=== PATIENT | female | born 1970 | race Caucasian/White ===

== ENCOUNTER → 2018-07-16 08:40 | Outpatient (CLI) | payer BC, OTHER, SELFPAY ==
--- NOTE | 2018-07-16 09:15 | MRI_ITS ---
STUDY: MRI CERVICAL SPINE WITHOUT CONTRAST REASON FOR EXAM: Female, 47 years old. Right arm and shoulder pain. TECHNIQUE: Standardized fat and water weighted pulse sequences were obtained in the sagittal and axial planes. COMPARISON: None FINDINGS: Normal foramen magnum and brainstem-cervical cord junction. Normal craniovertebral junction. Normal anterior atlantoaxial articulation. Normal odontoid process. Normal cervical lordosis. Normal vertebral bodies and posterior osseous elements. C2-3: Normal endplates. Normal disc height, signal and morphology. Normal central canal and intervertebral neural foramina. C3-4: There is demonstrated broad-based disc bulge eccentric to the right resulting in mild right foraminal narrowing. There is effacement of the thecal sac without cord compression. C4-5: Normal endplates. Normal disc height, signal and morphology. Normal central canal and intervertebral neural foramina. C5-6: There is demonstrated right paracentral and foraminal disc bulge resulting in moderate right foraminal narrowing. There is associated right side thecal sac effacement without significant spinal canal narrowing. C6-7: Normal endplates. Normal disc height, signal and morphology. Normal central canal and intervertebral neural foramina. C7-T1: Normal endplates. Normal disc height, signal and morphology. Normal central canal and intervertebral neural foramina. Normal cervical cord. Normal visualized soft tissue structures. MRI/Spine Cervical (Routine) IMPRESSION: 1. Right paracentral C5-6 paracentral disc bulge resulting in moderate right foraminal narrowing, clinically correlate for right C5 nerve root radiculopathy. 2. Mild right foraminal narrowing at C3-4. Electronically Signed: Dread Fraser DO at 11:44 EST , Service support ,
== END ==
PROVIDERS: Family Provider Family Medicine; PCP Family Medicine; Referring Provider Family Medicine; Visit Provider Family Medicine
DX: M25.511 Pain in right shoulder (principal); R53.1 Weakness; M79.609 Pain in unspecified limb; R20.2 Paresthesia of skin
CPT/HCPCS: 72141

== ENCOUNTER → 2019-02-13 | Outpatient (CLI) | payer BC, OTHER, SELFPAY ==
[2019-02-13 10:18] LABS: Absolute Lymphocyte Count 1.56 X10^3/uL (0.83-4.51); Absolute Neutrophil Count 2.3 X10^3/uL (2.0-7.7); Basophil# 0.04 X10^3/uL; Basophil% 0.9 % (0-1); Eosinophil# 0.16 X10^3/uL; Eosinophils% 3.6 % (0-5); Hematocrit 37.7 % (37-47); Lymphocyte # 1.56 X10^3/ul (4.0); Lymphocyte % 35.1 % (19-41); Mean Corp Hgb Conc 31.8 g/dL (32-36); Mean Corpuscular Hgb 29.3 pg (27.0-32.0); Monocyte# 0.43 X10^3/uL; Monocyte% 9.7 % (0-10); NRBC Flagged by Analyzer 0 % (0-5); Neutrophil # 2.25 X10^3/uL (2.7-7.7); Neutrophil % 50.5 % (47-70); Platelet Count 246 K/mm3 (150-450); RBC Distribution Width CV 12.6 % (11.6-14.6); RBC Distribution Width SD 42.4 fl (35.1-43.9); White Blood Count 4.5 K/mm3 (4.4-11.0)
[2019-02-13 10:51] LABS: Vitamin D,25 Hydroxy 30.9 ng/mL (29.95-100.01)
[2019-02-13 10:59] LABS: ALB/GLOB Ratio 1.1 RATIO (0.9-2.4); AST(SGOT) 39 U/L (15-37); Alanine Aminotransfer ALT/SGPT 64 U/L (13-56); Albumin, Serum 3.7 g/dL (3.2-5.0); Alkaline Phosphatase 92 U/L (45-117); Anion Gap 5 (5-15); BUN 14 mg/dL (7-18); BUN/Creat Ratio 14.2 RATIO (10-20); Calcium,Total 8.9 mg/dL (8.5-10.1); Chloride 105 mmol/L (98-107); Cholesterol 366 mg/dL (200); Creatinine, Serum 0.99 mg/dL (0.55-1.02); EST Glomerular Filtration Rate 64 mL/min (>60); Est Glom Filt Rate - Afr Amer 77 mL/min (>60); Free T3 2.5 pg/mL (2.18-3.98); Globulin 3.3 g/dL (2.2-4.2); Glucose 84 mg/dL (74-106); High Density Lipoprotein 88 mg/dL; Potassium 4.5 mmol/L (3.5-5.1); Sodium Level 140 mmol/L (136-145); T4 Free Direct 0.78 ng/dL (0.76-1.46); Thyroid Stim Hormone (TSH) 1.45 uIU/mL (0.358-3.74); Triglycerides 112 mg/dL; Very Low Density Lipoprotein 22 mg/dL (5-40)
[2019-02-14 19:13] LABS: Thyroid Peroxidase AB 9 IU/mL (0-34)
[2019-02-15 13:21] LABS: Thyroglobulin Antibody < 1.0 IU/mL (0.0-0.9)
== END | disposition home or self-care (01) ==
PROVIDERS: Family Provider Family Medicine; PCP Family Medicine; Referring Provider Family Medicine; Visit Provider Family Medicine
DX: E03.9 Hypothyroidism, unspecified (principal); M79.10 Myalgia, unspecified site; M25.50 Pain in unspecified joint; E78.5 Hyperlipidemia, unspecified; R53.83 Other fatigue; M79.7 Fibromyalgia; E55.9 Vitamin D deficiency, unspecified
CPT/HCPCS: 36415; 80053; 80061; 82306; 84439; 84443; 84481; 85025; 86376; 86800

== ENCOUNTER 2019-02-16 07:42 | Outpatient (RCR) | payer BC, OTHER, SELFPAY ==
--- NOTE | 2019-02-21 08:38 | HP.FCE ---
HP OT Functional Capacity Eval - Task Lift Floor (Occasional 1-33% of Day): 40# Floor (Frequent 34-66% of Day): 20# Floor (Constant 67-100% of Day): 8# Floor PDL: Light-Medium Knee (Occasional 1-33% of Day): 40# Knee (Frequent 34-66% of Day): 20# Knee (Constant 67-100% of Day): 8# Knee PDL: Light-Medium Waist (Occasional 1-33% of Day): 40# Waist (Frequent 34-66% of Day): 20# Waist (Constant 67-100% of Day): 8# Waist PDL: Light-Medium Shoulder (Occasional 1-33% of Day): 25# Shoulder (Frequent 34-66% of Day): 12# Shoulder (Constant 67-100% of Day): 5# Shoulder PDL: Light Overhead (Occasional 1-33% of Day): 15# Overhead (Frequent 34-66% of Day): 8# Overhead (Constant 67-100% of Day): NA Overhead PDL: Light Comments: Therapist needed to ed. pt on proper lift mechanics with this task. pt followed instructions with good ability. - Work Activity/Posture Bending: Frequent Ability (34-66% of day) Squatting: Occasional Ability (1-33% of day) Comments: with external support Kneeling: Occasional Ability (1-33% of day) Comments: with external support Reaching out: Occasional Ability (1-33% of day) Reaching up: Occasional Ability (1-33% of day) Sitting: Frequent Ability (34-66% of day) Walking: Frequent Ability (34-66% of day) Standing: Occasional Ability (1-33% of day) - Reference Duration Sedentary Sedentary Light Light Light Medium Medium Medium Heavy Very Heavy Heavy Occasional (0-33% of day) Frequent (34-66% of day) Constant (67-100% of day) 10 # Negligible Negligible 15 # 8 # Negligible 20 # 10# Negli. 35 # 18 # 7 # 50 # 25 # 10 # 75 # 100 # >100 # 38 # 50 # >50 # 15 # 20 # >20 # - Patient Information Height: 1.63 m Weight:: 70.307 kg Hand Dominance: Right - Medical History Medical History Including Restrictions: Pt states she began having general pain in and dx of Fibromyalgia. PT states she did physical therapy, stretches, and yoga to mtg her symptoms. Pt states she began having pinch nerve, bulging disc C3-C4 dx in July 2018. Pt states she has been using pain mtg to help her symptoms. She has had two injections in her neck and one in mid back. Pt states injections is helping with her symptoms. pt states her medication list is lisinopril 20 mg , nizatidine 150 mg, Amitriptyline 50mg, calcium carbonate with Vit.D , cetirizine, chlordiazepoxide clidiniu, diazepam, diclofenac. duloxetine, lorazepam, tramadol 50mg. Pt states she walks 1/8 of a mile 2x a day walking her dogs. pt states she does exercise 1-2x week but not elaborate on what exercises she does when she exercises/stretches. - Diagnoses Diagnoses: Fibromyalgia dx . Bulging disc C3-C4 July 2018. HTN 1997 controlled by medication. IBS - Symptoms Symptoms: Pt reports symptoms vary from fatigue and wide spread body pain. - Pain Pain: PT states she did take her pain medication this AM. PT took tramadol and states she is due for epidural injection next week. Pt reports pain sitting 5/10. Mary pain questionnaire pt score of 30 indicates poor psycholdynamics. 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 Pt states her last day of employment was 2017. Pt reports her job included repetitive fast past work, standing for 4 hours and sitting for four hours. Pt states her lift requirement was 25#. Pt was employed but using her FMLA so she wasn?t working her full 40 hours a week since 2015. 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 Pt states this job required sitting, standing, or working at a [employer]. - Behavioral Behavioral: Pt was cooperative during the assessment. - ADLS ADLS: Pt states she lives in a ranch home with basement. pt states she has three entry steps to get in her home. Pt has no difficulty getting in or out of her home. Pt lives with spouse and son who is 22 years old. Pt states she has a tub shower with no adaptive equipment. Pt states she can bath IND. Pt can dress IND. Pt states laundry is in basement with 12 steps to basement and no railing. Pt states she has no trouble going to the basement. Pt states she is ind. with laundry. Pt states she does all the meal prep and cooking, Pt states she is IND with all the cleaning. Pt states her does the yard work. Pt states she drives IND. pt states she does the grocery shopping IND. - Physical Examination Physical Examination: Pt demonstrates with rounded posture, rolled shoulder neck forward posture. ROM: Pt demo ROM WNL. Strength: Pt grossly throughout UB 5/5 LB 5/5 Right Railway Traction Line Worker Strength Average: 48.33 Right Railway Traction Line Worker Strength Percentile: 7% Left Railway Traction Line Worker Strength Average: 51.66 Left Railway Traction Line Worker Strength Percentile: 17% Right Lateral Pinch Average: 10.00 Right Lateral Pinch Percentile: 25% Left Lateral Pinch Average: 10.00 Left Lateral Pinch Percentile: 25% Right Tripod Pinch Average: 12.00 Right Tripod Pinch Percentile: 50% Left Tripod Pinch Average: 14.00 Left Tripod Pinch Percentile: 50% Sensation: denies Fine Motor: 9 hole peg test right 22 sec = 25%. left 23 sec = 25%. pt demo fair FMS Balance: No loss of balance was noted during assessment - Non Material Handling Activities Bending: PT demo the ability to bend forward three times, ten times and ten ten times rapidly.pt can bend forward on a frequent ability. Squatting: Pt demo the ability to squat three times, ten times and ten times again (pt did not demo increase speed of squatting from intial 10 so completing 10 times rapidly was not completed)- pt did use external support. pt can squat on a occasional ability with exteranl support. Kneeling: pt demo the ability to kneel with external support three times, ten times and ten times again( speed did not increase with kneeling when requested pt to perform 10 times rapidly) - pt reported buring pain in her legs pointing to her quads. Pt reports LE pain 6/10 pt can knee on a occasional ability with use of external support. Reaching out/up: pt demo the ability to reach out/up three times, ten times, and ten times again- pt reported she could not complet the tasks faster due to pain and fear of increaseing pain. pts reported pain was 6/10. pt can reach up/out on a occassional ability. Walking: pt ambulated 15 min 26 sec. wtih a quick reciprical gait pattern. As pt indicated she ambulates 1/8 a mile 2 x a day while walking her dogs. Standing: pt stood for 6:39. therapist noted pt did initiate leaning body on tabletop after 4 min. pt can stand on occasional ability with given the opportunity to shift her body weight. Sitting: pt demo the ability to sit for 40 min with no expressed or apparent discomfort- pt can sit on a frequent ability. Climbing Stairs: pt ascended/descended 10 steps with reciprocal step pattern and use of rail with descending steps. - Dynamic Occasional Lifting Capacity Floor Lift: Pt demo the ability to lift 40# maximally from floor level and 20# comfortably. Therapist needed to ed. Pt on good lifting mechanics as Pt initial lift was bending at waist and lifting weight vs squatting with good lift mechanics. Knee Lift: Pt demo the ability to lift 40# maximally from knee level and 20# comfortably. Therapist needed to ed. Pt on good lifting mechanics as Pt initial lift was bending at waist and lifting weight vs squatting with good lift mechanics. Waist Lift: Pt demo the ability to lift 40# maximally from waistlevel and 20# comfortably. Shoulder Lift: Pt demo the ability to lift 25 # maximally from waistlevel and 10# comfortably. Overhead Lift: Pt demo the ability to lift 15# maximally from waistlevel and 15# comfortably. Carrying: Pt demo the ability to carry 35# for 30 feet with good ability. Comments: pt states pain in her mid to lower back, right shoulder reports 7/10
== END 2019-02-16 19:00 | disposition home or self-care (01) ==
LOC: OT 07:42
PROVIDERS: Family Provider Family Medicine; PCP Family Medicine; Referring Provider Anesthesiology Pain Medicine; Visit Provider Anesthesiology Pain Medicine
DX: M54.2 Cervicalgia (principal); M79.7 Fibromyalgia
CPT/HCPCS: 97750

== ENCOUNTER → 2019-04-20 08:23 | Outpatient (CLI) | payer BC, OTHER, SELFPAY ==
[2019-04-20 11:00] LABS: ALB/GLOB Ratio 1.2 RATIO (0.9-2.4); AST(SGOT) 35 U/L (15-37); Alanine Aminotransfer ALT/SGPT 44 U/L (13-56); Albumin, Serum 3.9 g/dL (3.2-5.0); Alkaline Phosphatase 65 U/L (45-117); Anion Gap 7 (5-15); BUN 12 mg/dL (7-18); BUN/Creat Ratio 11.3 RATIO (10-20); Calcium,Total 9.2 mg/dL (8.5-10.1); Chloride 108 mmol/L (98-107); Cholesterol 261 mg/dL (200); Creatinine, Serum 1.06 mg/dL (0.55-1.02); EST Glomerular Filtration Rate 59 mL/min (>60); Est Glom Filt Rate - Afr Amer 71 mL/min (>60); Globulin 3.3 g/dL (2.2-4.2); Glucose 87 mg/dL (74-106); High Density Lipoprotein 94 mg/dL; Potassium 4.2 mmol/L (3.5-5.1); Protein, Total 7.2 g/dL (6.4-8.2); Sodium Level 141 mmol/L (136-145); Triglycerides 184 mg/dL; Very Low Density Lipoprotein 37 mg/dL (5-40)
== END ==
PROVIDERS: Family Provider Family Medicine; PCP Family Medicine; Referring Provider Family Medicine; Visit Provider Family Medicine
DX: I10 Essential (primary) hypertension (principal); E78.5 Hyperlipidemia, unspecified
CPT/HCPCS: 36415; 80053; 80061

== ENCOUNTER → 2019-07-04 | Outpatient (CLI) | payer BC, OTHER, SELFPAY ==
--- NOTE | 2019-07-04 09:00 | RAD_ITS ---
STUDY: X-RAY - CERVICAL SPINE REASON FOR EXAM: Female, 48 years old. PAIN TECHNIQUE: 4 view(s) of the cervical spine were obtained. COMPARISON: 12/25/2016 FINDINGS: Normal anterior atlantoaxial articulation. Normal odontoid process. Normal cervical lordosis. Normal vertebral bodies and endplates. Focal disc space narrowing and osteophyte formation at C5/C6 consistent consistent with degenerative disc disease. 2 mm retrolisthesis of C5 on C6 which is unchanged on the neutral, flexion, and extension views. Normal visualized intervertebral neuroforamina. The soft tissue structures are unremarkable. RAD/Cerv Spine 4 or 5 Views IMPRESSION: Focal degenerative disc disease at C5/C6 with 2 mm retrolisthesis of C5 on C6 which is unchanged on the neutral, flexion, and extension views. These findings are new when compared with prior study from 12/25/2016. Electronically Signed: Avtar Cho MD at 12:44 EST Tel , Service support ,
== END | disposition home or self-care (01) ==
LOC: HPRAD 09:00
PROVIDERS: PCP Family Medicine; Referring Provider Orthopaedic Surgery; Visit Provider Orthopaedic Surgery
DX: M54.2 Cervicalgia (principal)
CPT/HCPCS: 72050

== ENCOUNTER → 2019-07-15 | Outpatient (CLI) | payer BC, OTHER, SELFPAY ==
--- NOTE | 2019-07-15 07:59 | MRI_ITS ---
STUDY: MRI CERVICAL SPINE WITHOUT CONTRAST REASON FOR EXAM: Female, 48 years old. Radiculopathy. Neck pain, right arm pain TECHNIQUE: Standardized fat and water weighted pulse sequences were obtained in the sagittal and axial planes. COMPARISON: July 16, 2018 FINDINGS: Normal foramen magnum and brainstem-cervical cord junction. Normal cervical lordosis. C2-3: There is minimal disc space narrowing and endplate spondylosis. There is no significant disc herniation, central canal or foraminal stenosis. C3-4: There is moderate disc space narrowing and endplates spondylosis. Mild disc osteophyte complex with mild central canal stenosis. Uncovertebral and facet arthropathy with moderate right and mild left foraminal stenosis. Findings are stable since prior examination C4-5: There is mild disc space narrowing and endplates spondylosis. Minimal disc osteophyte complex without significant central canal stenosis. Uncovertebral and facet arthropathy with mild right and mild left foraminal stenosis. Findings are stable since prior examination C5-6: There is increased severe disc space narrowing and endplates spondylosis. Mild disc osteophyte complex with moderate central canal stenosis. There is decreased right paracentral protrusion however. Uncovertebral and facet arthropathy with stable severe right and mild left foraminal stenosis. C6-7: There is minimal disc space narrowing and endplate spondylosis. There is no significant disc herniation, central canal or foraminal stenosis. C7-T1: There is minimal disc space narrowing and endplate spondylosis. There is no significant disc herniation, central canal or foraminal stenosis. Normal cervical cord. MRI/Spine Cervical (Routine) IMPRESSION: C3/C4: Moderate right foraminal stenosis. C5/C6: Severe right foraminal stenosis. Moderate central canal stenosis. Electronically Signed: Kosta Taylor MD at 9:20 EDT Tel , Service support ,
== END | disposition home or self-care (01) ==
LOC: MRI 07:58
PROVIDERS: PCP Family Medicine; Referring Provider Orthopaedic Surgery; Visit Provider Orthopaedic Surgery
DX: M54.12 Radiculopathy, cervical region (principal)
CPT/HCPCS: 72141

== ENCOUNTER → 2020-02-14 | Outpatient (CLI) | payer BC, OTHER, SELFPAY ==
[2020-02-14 12:13] LABS: Absolute Lymphocyte Count 2.15 X10^3/uL (0.83-4.51); Absolute Neutrophil Count 4.4 X10^3/uL (2.0-7.7); Basophil# 0.05 X10^3/uL; Basophil% 0.7 % (0-1); Eosinophil# 0.08 X10^3/uL; Eosinophils% 1.1 % (0-5); Hematocrit 40.4 % (37-47); Hemoglobin 12.7 g/dL (12.0-15.0); Lymphocyte # 2.15 X10^3/ul (4.0); Lymphocyte % 29.4 % (19-41); Mean Corp Hgb Conc 31.4 g/dL (32-36); Mean Corpuscular Hgb 29.2 pg (27.0-32.0); Mean Corpuscular Volume 92.9 fL (81-99); Mean Platelet Vol. 8.8 fl (6.2-12.0); Monocyte# 0.59 X10^3/uL; Monocyte% 8.1 % (0-10); NRBC Flagged by Analyzer 0 % (0-5); Neutrophil # 4.43 X10^3/uL (2.7-7.7); Neutrophil % 60.6 % (47-70); Platelet Count 293 K/mm3 (150-450); RBC Distribution Width CV 12.5 % (11.6-14.6); RBC Distribution Width SD 42.8 fl (35.1-43.9); Red Blood Count 4.35 M/mm3 (4.2-5.4); White Blood Count 7.3 K/mm3 (4.4-11.0)
[2020-02-14 12:40] LABS: Vitamin B12 > 2000 pg/mL (211-911); Vitamin D,25 Hydroxy 87.9 ng/mL
[2020-02-14 12:43] LABS: ALB/GLOB Ratio 1.1 RATIO (0.9-2.4); AST(SGOT) 26 U/L (15-37); Alanine Aminotransfer ALT/SGPT 55 U/L (13-56); Albumin, Serum 3.9 g/dL (3.2-5.0); Alkaline Phosphatase 78 U/L (45-117); Anion Gap 3 (5-15); BUN 20 mg/dL (7-18); BUN/Creat Ratio 17.2 RATIO (10-20); Calcium,Total 9.3 mg/dL (8.5-10.1); Chloride 104 mmol/L (98-107); Cholesterol 275 mg/dL (200); Creatinine, Serum 1.16 mg/dL (0.55-1.02); EST Glomerular Filtration Rate 53 mL/min (>60); Est Glom Filt Rate - Afr Amer 64 mL/min (>60); Globulin 3.4 g/dL (2.2-4.2); Glucose 72 mg/dL (74-106); High Density Lipoprotein 109 mg/dL; Potassium 4.5 mmol/L (3.5-5.1); Protein, Total 7.3 g/dL (6.4-8.2); Sodium Level 138 mmol/L (136-145); Triglycerides 113 mg/dL; Very Low Density Lipoprotein 23 mg/dL (5-40)
== END | disposition home or self-care (01) ==
LOC: BFHLAB 10:40
PROVIDERS: PCP Family Medicine; Visit Provider Family Medicine
DX: E53.8 Deficiency of other specified B group vitamins (principal); E55.9 Vitamin D deficiency, unspecified; E78.5 Hyperlipidemia, unspecified; Z51.81 Encounter for therapeutic drug level monitoring
CPT/HCPCS: 36415; 80053; 80061; 82306; 82607; 85025

== ENCOUNTER → 2020-08-15 07:24 | Outpatient (CLI) | payer OTHER, SELFPAY ==
[2020-08-15 10:38] LABS: ALB/GLOB Ratio 1.2 RATIO (0.9-2.4); AST(SGOT) 37 U/L (15-37); Alanine Aminotransfer ALT/SGPT 83 U/L (13-56); Albumin, Serum 3.9 g/dL (3.2-5.0); Alkaline Phosphatase 88 U/L (45-117); Anion Gap 4 (5-15); BUN 15 mg/dL (7-18); BUN/Creat Ratio 18.9 RATIO (10-20); Calcium,Total 9.2 mg/dL (8.5-10.1); Chloride 108 mmol/L (98-107); Cholesterol 253 mg/dL (200); EST Glomerular Filtration Rate 81 mL/min (>60); Est Glom Filt Rate - Afr Amer 98 mL/min (>60); Globulin 3.2 g/dL (2.2-4.2); Glucose 102 mg/dL (74-106); High Density Lipoprotein 113 mg/dL; Magnesium 2.1 mg/dL (1.6-2.6); Potassium 3.8 mmol/L (3.5-5.1); Protein, Total 7.1 g/dL (6.4-8.2); Sodium Level 140 mmol/L (136-145); Triglycerides 97 mg/dL; Very Low Density Lipoprotein 19 mg/dL (5-40)
== END ==
PROVIDERS: PCP Family Medicine; Referring Provider Family Medicine; Visit Provider Family Medicine
DX: E78.5 Hyperlipidemia, unspecified (principal); E83.42 Hypomagnesemia; E87.6 Hypokalemia; Z51.81 Encounter for therapeutic drug level monitoring
CPT/HCPCS: 36415; 80053; 80061; 83735

== ENCOUNTER → 2021-05-06 07:10 | Outpatient (CLI) | payer OTHER, SELFPAY ==
--- NOTE | 2021-05-06 07:18 | MRI_ITS ---
STUDY: MRI CERVICAL SPINE WITHOUT CONTRAST REASON FOR EXAM: Female, 50 years old. CERVICAL RADICULOPATHY TECHNIQUE: Standardized fat and water weighted pulse sequences were obtained in the sagittal and axial planes. COMPARISON: MRI cervical spine without contrast 07/15/2019. FINDINGS: Normal foramen magnum and brainstem-cervical cord junction. Normal craniovertebral junction. Normal anterior atlantoaxial articulation. Normal odontoid process. Mild straightening of the upper C-spine curvature. Normal vertebral bodies and posterior osseous elements. C2-3: Normal endplates. Normal disc height, signal and morphology. Normal central canal and intervertebral neural foramina. C3-4: Normal endplates. Moderate disc space height narrowing. Small posterior marginal spurs causing minimal ventral extra dural defect. Normal central canal and intervertebral neural foramina. C4-5: Normal endplates. Normal disc height, signal and morphology. Normal central canal and intervertebral neural foramina. C5-6: Normal endplates. Pronounced disc space height narrowing. Minimal degenerative retrolisthesis of C5 on C6 is accounts without small ventral extradural defect. Normal central canal and intervertebral neural foramina. C6-7: Normal endplates. Normal disc height, signal and morphology. Normal central canal and intervertebral neural foramina. C7-T1: Normal endplates. Normal disc height, signal and morphology. Normal central canal and intervertebral neural foramina. T1-T2, T2-T3 and T3-T4: (Sagittal only). Normal endplates. Normal disc height, signal and morphology. No ventral extradural defect. Normal central canal and intervertebral neural foramina. Normal cervical cord. Normal upper thoracic spinal cord. Normal included brainstem and cerebellum. Normal visualized soft tissue structures. MRI/Spine Cervical (Routine) IMPRESSION: 1. No MRI evidence of cervical extruded disc fragment, spinal stenosis or nerve root displacement. 2. Posterior marginal spurs causing minimal ventral extradural defect at C3-C4 disc space level and moderate C3-C4 degenerative disc space height narrowing. No significant change. 3. Pronounced C5-C6 posterior disc space height narrowing and minimal degenerative retrolisthesis of C5 on C6 causing ventral extradural defect but unchanged. Electronically Signed: Ridge Cruz MD at 10:20 EST , Service support ,
== END ==
PROVIDERS: PCP Family Medicine; Referring Provider Anesthesiology Pain Medicine; Visit Provider Anesthesiology Pain Medicine
DX: M54.12 Radiculopathy, cervical region (principal)
CPT/HCPCS: 72141

== ENCOUNTER → 2021-08-28 | Outpatient (CLI) | payer OTHER, SELFPAY ==
--- NOTE | 2021-08-28 07:18 | US_ITS ---
STUDY: ABDOMINAL ULTRASOUND - RIGHT UPPER QUADRANT REASON FOR VISIT: Female, 50 years old ELEVATED LIVER FUNCTION TESTS TECHNIQUE: Ultrasound evaluation of the right upper quadrant was performed with real-time and static cho-scale imaging. TECHNICAL QUALITY: Adequate. COMPARISON: None. FINDINGS: Liver: The liver measures 14 cm. There is normal echogenicity of the liver. The bile ducts are within normal limits. There is hepatic color flow. The direction of portal flow is hepatopetal. There is no demonstrated mass lesion. Gallbladder: Normal distended gallbladder. The gallbladder wall measures 2.3 mm. There is a negative sonographic Garvin''s sign. There is no pericholecystic fluid. There are no gallstones. Common Bile Duct (C.B.D.): The common bile duct measures 2.0 mm. Pancreas: There is no demonstrated pancreatic mass or cyst. Right Kidney: Normal size of the right kidney. There is no demonstrated renal mass or cyst. There is no right hydronephrosis. US/Abdomen Limited IMPRESSION: Normal right upper quadrant ultrasound examination. Electronically Signed: Jeet Nichols MD (Brooks) at 8:05 EDT Reading Location ID and State: [facility] / [place] , Service support ,
== END | disposition home or self-care (01) ==
PROVIDERS: PCP Family Medicine; Referring Provider Family Medicine; Visit Provider Family Medicine
DX: R79.89 Other specified abnormal findings of blood chemistry (principal)
CPT/HCPCS: 76705

== ENCOUNTER → 2021-10-01 | Outpatient (CLI) | payer OTHER, SELFPAY ==
[2021-10-01 09:49] LABS: ALB/GLOB Ratio 1.2 RATIO (0.9-2.4); AST(SGOT) 42 U/L (15-37); Alanine Aminotransfer ALT/SGPT 72 U/L (13-56); Albumin, Serum 3.9 g/dL (3.2-5.0); Alkaline Phosphatase 85 U/L (45-117); Anion Gap 3 (5-15); BUN 18 mg/dL (7-18); BUN/Creat Ratio 19.8 RATIO (10-20); Calcium,Total 9.3 mg/dL (8.5-10.1); Chloride 105 mmol/L (98-107); Creatinine, Serum 0.91 mg/dL (0.55-1.02); EST Glomerular Filtration Rate 69 mL/min (>60); Est Glom Filt Rate - Afr Amer 84 mL/min (>60); Globulin 3.3 g/dL (2.2-4.2); Glucose 70 mg/dL (74-106); Potassium 4.4 mmol/L (3.5-5.1); Protein, Total 7.2 g/dL (6.4-8.2); Sodium Level 140 mmol/L (136-145)
== END | disposition home or self-care (01) ==
PROVIDERS: PCP Family Medicine; Referring Provider Family Medicine; Visit Provider Family Medicine
DX: R74.8 Abnormal levels of other serum enzymes (principal)
CPT/HCPCS: 36415; 80053

== ENCOUNTER → 2021-10-13 | Outpatient (CLI) | payer OTHER, SELFPAY ==
--- NOTE | 2021-10-13 10:30 | RAD_ITS ---
STUDY: X-RAY - LUMBAR SPINE REASON FOR EXAM: Female, 50 years old. PAIN TECHNIQUE: XR Spine Lumbar 2 or 3 Views COMPARISON: None FINDINGS: Normal lumbar lordosis. There is no substantial scoliosis. There is a normal alignment of the vertebrae. Normal vertebral bodies and endplates. Normal disc space heights. The soft tissue structures are unremarkable. RAD/Lumbar Spine 2 or 3 Views IMPRESSION: There are no acute findings. Electronically Signed: Bret Almanza MD at 17:12 EDT ,
== END | disposition home or self-care (01) ==
LOC: RAD 10:18
PROVIDERS: PCP Family Medicine; Referring Provider Anesthesiology Pain Medicine; Visit Provider Anesthesiology Pain Medicine
DX: M51.36 Other intervertebral disc degeneration, lumbar region (principal)
CPT/HCPCS: 72100

== ENCOUNTER → 2021-11-22 | Outpatient (CLI) | payer OTHER, SELFPAY ==
[2021-11-22 09:40] LABS: ALB/GLOB Ratio 1.2 RATIO (0.9-2.4); AST(SGOT) 40 U/L (15-37); Alanine Aminotransfer ALT/SGPT 62 U/L (13-56); Albumin, Serum 3.8 g/dL (3.2-5.0); Alkaline Phosphatase 89 U/L (45-117); Anion Gap 5 (5-15); BUN 11 mg/dL (7-18); BUN/Creat Ratio 11.1 RATIO (10-20); Calcium,Total 9.4 mg/dL (8.5-10.1); Chloride 106 mmol/L (98-107); Creatinine, Serum 0.99 mg/dL (0.55-1.02); EST Glomerular Filtration Rate 63 mL/min (>60); Est Glom Filt Rate - Afr Amer 76 mL/min (>60); Globulin 3.3 g/dL (2.2-4.2); Glucose 88 mg/dL (74-106); Potassium 4.4 mmol/L (3.5-5.1); Protein, Total 7.1 g/dL (6.4-8.2); Sodium Level 142 mmol/L (136-145)
== END | disposition home or self-care (01) ==
PROVIDERS: PCP Family Medicine; Referring Provider Family Medicine; Visit Provider Family Medicine
DX: R79.89 Other specified abnormal findings of blood chemistry (principal)
CPT/HCPCS: 36415; 80053

== ENCOUNTER → 2022-02-18 | Outpatient (CLI) | payer OTHER, SELFPAY ==
[2022-02-18 12:24] LABS: ALB/GLOB Ratio 1.1 RATIO (0.9-2.4); AST(SGOT) 32 U/L (15-37); Alanine Aminotransfer ALT/SGPT 43 U/L (13-56); Albumin, Serum 3.6 g/dL (3.2-5.0); Alkaline Phosphatase 81 U/L (45-117); BUN 13 mg/dL (7-18); BUN/Creat Ratio 15.8 RATIO (10-20); Creatinine, Serum 0.82 mg/dL (0.55-1.02); EST Glomerular Filtration Rate 78 mL/min (>60); Est Glom Filt Rate - Afr Amer 94 mL/min (>60); Globulin 3.3 g/dL (2.2-4.2); Glucose 79 mg/dL (74-106); Potassium 4.1 mmol/L (3.5-5.1); Protein, Total 6.9 g/dL (6.4-8.2); Sodium Level 138 mmol/L (136-145)
[2022-02-18 12:25] LABS: Anion Gap 4 (5-15); Chloride 103 mmol/L (98-107)
== END | disposition home or self-care (01) ==
LOC: BFHLAB 09:53
PROVIDERS: PCP Family Medicine; Visit Provider Family Medicine
DX: R79.89 Other specified abnormal findings of blood chemistry (principal); Z51.81 Encounter for therapeutic drug level monitoring
CPT/HCPCS: 36415; 80053

== ENCOUNTER → 2022-03-19 | Outpatient (CLI) | payer OTHER, SELFPAY ==
[2022-03-30 17:40] LABS: HPV APTIMA, High Risk Negative (Negative)
== END | disposition home or self-care (01) ==
PROVIDERS: PCP Family Medicine; Visit Provider Obstetrics & Gynecology
DX: Z12.4 Encounter for screening for malignant neoplasm of cervix (principal)
CPT/HCPCS: 87624; 88175; G0145

== ENCOUNTER 2022-04-14 09:22 | Day surgery (SDC) | payer OTHER, SELFPAY ==
[2022-04-14] VITALS (7 sets, daily range): BP systolic 101–114; BP diastolic 71–84; PULSE 72–80; RESP 16–18; TEMP 36.3–36.4; O2SAT 100; BMI 24.2
[2022-04-14] MEDS: Lactated Ringers 1,000 ML 15 ML IV (13:26)
--- NOTE | 2022-04-14 15:19 | HP.PCM_ITS ---
History and Physical Date of Admission: 04/14/22 Intake Vital Signs ? 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 Required: No Is patient in pain?: No Allergies No Known Allergies Allergy (Verified 03/25/22 08:39) Medications amitriptyline 150 mg tablet 150 mg PO DAILY 03/19/22 [History Confirmed 03/25/22] azelaic acid 15 % topical gel (Finacea) 1 applic topical BID 03/19/22 [History Confirmed 03/25/22] black cohosh 540 mg capsule 20 mg PO BID 03/19/22 [History Confirmed 03/25/22] calcium carbonate 600 mg calcium (1,500 mg) tablet 600 mg PO DAILY 03/19/22 [History Confirmed 03/25/22] cholecalciferol (vitamin D3) 125 mcg (5,000 unit) capsule 125 mcg PO DAILY 03/19/22 [History Confirmed 03/25/22] clindamycin phosphate 1 % topical gel 1 applic topical DAILY 03/19/22 [History Confirmed 03/25/22] coenzyme Q10 75 mg capsule (Ultra CoQ10) 75 mg PO TID 03/19/22 [History Confirmed 03/25/22] diazepam 2 mg tablet 2 mg PO QHS PRN 03/19/22 [History Confirmed 03/25/22] diclofenac sodium 75 mg tablet,delayed release 75 mg PO BID 03/19/22 [History Confirmed 03/25/22] duloxetine 60 mg capsule,delayed release 60 mg PO BID 03/19/22 [History Confirmed 03/25/22] famotidine 40 mg tablet 40 mg PO DAILY 03/19/22 [History Confirmed 03/25/22] gabapentin 400 mg capsule 900 mg PO BID 03/19/22 [History Confirmed 03/25/22] lisinopril 20 mg tablet 20 mg PO DAILY 03/19/22 [History Confirmed 03/25/22] lorazepam 0.5 mg tablet 0.5 mg PO DAILY PRN 03/19/22 [History Confirmed 03/25/22] mecobalamin (vitamin B12) 1,000 mcg chewable tablet 1,000 mcg PO DAILY 03/19/22 [History Confirmed 03/25/22] omega-3 fatty acids 1,000 mg capsule 1,000 mg PO DAILY 03/19/22 [History Confirmed 03/25/22] pravastatin 20 mg tablet 20 mg PO DAILY 03/19/22 [History Confirmed 03/25/22] rhubarb root extract 4 mg tablet (Estroven Complete Menopause Relief) mg PO 03/19/22 [History Confirmed 03/25/22] tramadol 50 mg tablet 100 mg PO TID PRN 03/19/22 [History Confirmed 03/25/22] PFSH Medical History? Abnormal uterine bleeding (AUB) Anxiety Endometrial polyp History of endometrial biopsy Low back pain Surgical History? S/P endometrial ablation S/P tooth extraction S/P tubal ligation Family History? Grandmother Bleeding disorder CVA (cerebral vascular accident) Heart disease Breast cancerMother Heart disease Social History? Smoking Status:? Current every day smoker alcohol intake:? never substance use type:? does not use caffeine:? Yes what type of physical activity do you participate in:? yoga and additional details: stretches seatbelt use:? always do you feel safe at home:? Yes additional social history:? - Jb ? HPI HPI HPI: Patient is a 51-year-old female who had a positive Cologuard.? Patient reports she is never had a colonoscopy or previous Cologuard test.? She denies blood in the stool or abdominal pain. ROS General General: No weight change, appetite, fatigue, colon cancer, breast cancer or weakness HEENT HEENT: No difficulty swallowing, eye injury, eye surgery, swollen glands or hoarseness Endo Endocrine: No thyroid disease, diabetes mellitus, thyroid cancer, Hair loss, heat intolerance or cold intolerance Skin Skin: No rash or changing moles Musc Musculoskeletal: Yes back problems and arthritis; No rheumatoid arthritis, gout or joint pain Cardio Cardiovascular: Yes high blood pressure; No murmur, pacemaker, heart disease, atrial fibrillation, heart attack, heart stent, palpitations, shortness of breat with exertion or chest pain Psych Psychiatric: Yes anxiety; No depression or hearing voices Resp Respiratory: No shortness of breath, No sleep apnea, No cough, No COPD, No asthma, No emphysema and No wheezing Gastro Gastrointestinal: No abdominal pain, No nausea or vomiting, No diarrhea, No constipation, No blood in stool, Yes acid reflux, Yes hemorrhoids, No ulcers, No gallbladder problem and No black,tarry stools Aries Hematologic: No blood thinners, No blood disorders, No bleeding, No anemia and No blood clots Neuro Neurologic: No system reviewed and no additional complaints, except as d ocumented, No as per HPI, No abnormal gait, No abnormal hearing, No abnormal movements, No abnormal speech, No behavioral changes, No burning sensations, No confusion, No convulsions, No disequilibrium, No dizziness, No localized weakness, No frequent falls, No headache(s), No lack of coordination, No loss of vision, No memory loss, No numbness, No other visual disturbances, No radicular pain, No restless legs, No sensory deficit, No syncope, Yes tingling (Right arm), No tremor(s), No weakness and No other Exam Const General: cooperative Orientation: alert and oriented x3 [facility] Head: normal to inspection Neck Neck: normal visual inspection and full ROM Chest Chest palpation & inspection: normal inspection of the chest Resp Effort & Inspection: normal respiratory effort Auscultation: clear to auscultation bilaterally Cardio Rate: regular rate Rhythm: regular rhythm GI Inspection: non-distended Palpation: soft and nontender Skin General: no rashes or lesions noted Neuro General: patient alert and patient oriented x3 Extrem General: full ROM Psych Appearance: grossly normal Mental Status: mental status grossly normal Assessment and Plan Assessment and Plan (1) Positive colorectal cancer screening using Cologuard test: ?Status:?Acute ?Plan: The patient has a positive Cologuard and requires colonoscopy for evaluation. I explained endoscopy in detail to the patient.? I explained the risks including but not limited to stroke or heart attack with anesthesia, perforation of the GI tract, bleeding, infection.? I explained that any of these could necessitate further emergency surgery.? The patient understands and all questions were answered sufficiently.? The patient wishes to proceed with procedure. Justice Pitt MD Pager: I have examined the patient and the H&P has been reviewed. There are no clinical changes since date of exam.
--- NOTE | 2022-04-14 16:10 | OP.COLON_ITS ---
Patient Name: Candice Jordan Procedure Date: 04/14/2022 3:10 PM Date of : 1970 Age: 51 Procedure: Colonoscopy Indications: Positive Cologuard test Providers: Justice Pitt MD Referring MD: Kelly Tello Medicines: Monitored Anesthesia Care Patient Profile: This is a 51 year old female. Refer to note in patient chart for documentation of history and physical. Last Colonoscopy: none. The patient's first colonoscopy is today. Complications: No immediate complications. Procedure: Pre-Anesthesia Assessment: - Prior to the procedure, a History and Physical was performed, and patient medications and allergies were reviewed. The patient's tolerance of previous anesthesia was also reviewed. The risks and benefits of the procedure and the sedation options and risks were discussed with the patient. All questions were answered, and informed consent was obtained. Prior Anticoagulants: The patient has taken no previous anticoagulant or antiplatelet agents. After reviewing the risks and benefits, the patient was deemed in satisfactory condition to undergo the procedure. After I obtained informed consent, the scope was passed under direct vision. Throughout the procedure, the patient's blood pressure, pulse, and oxygen saturations were monitored continuously. The colonoscope was introduced through the anus and advanced to the cecum, identified by appendiceal orifice and ileocecal valve. The colonoscopy was performed without difficulty. The patient tolerated the procedure well. The quality of the bowel preparation was good. Scope In: 3:36:34 PM Scope Withdrawal Time 0 hours 10 minutes 1 second Scope Out: 4:03:33 PM Total Procedure Duration Time 0 hours 26 minutes 59 seconds Findings: The entire examined colon appeared normal on direct and retroflexion views. Impression: - The entire examined colon is normal on direct and retroflexion views. - No specimens collected. Recommendation: - Discharge patient to home. - Resume previous diet. - Continue present medications. - Repeat colonoscopy in 10 years for screening purposes. Procedure Code(s): --- Professional --- 97369, Colonoscopy, flexible; diagnostic, including collection of specimen(s) by brushing or washing, when performed (separate procedure) Diagnosis Code(s): --- Professional --- R19.5, Other fecal abnormalities CPT copyright 2017 [employer]. All rights reserved. The codes documented in this report are preliminary and upon medical insurance coder review may be revised to meet current compliance requirements. Justice Pitt MD 04/14/2022 4:09:30 PM This report has been signed electronically. Number of Addenda: 0 Note Initiated On: 04/14/2022 3:10 PM
--- NOTE | 2022-04-14 16:11 | OP.CCLET_ITS ---
04/14/2022 Kelly Tello [address] [place] [address] Re : Colonoscopy procedure for Candice Jordan Dear Dr. Tello This procedure was performed on Thursday, April 14, 2022. My impressions and recommendations are as follows: Impressions : - The entire examined colon is normal on direct and retroflexion views. - No specimens collected. Recommendations : - Discharge patient to home. - Resume previous diet. - Continue present medications. - Repeat colonoscopy in 10 years for screening purposes. My findings are described in the full procedure note, which is enclosed. If I can be of further assistance, please feel free to contact me at Doctor phone number(s): , Work: . Sincerely, Justice Pitt MD 04/14/2022 4:09:30 PM This report has been signed electronically.
== END 2022-04-14 16:54 | disposition home or self-care (01) ==
LOC: EN 09:23 → AC 09:24
PROVIDERS: PCP Family Medicine; Referring Provider Family Medicine; Visit Provider Surgery
PROC: 0DJD8ZZ Inspection of Lower Intestinal Tract, Via Natural or Artificial Opening Endoscopic (ICD-10-PCS; CPT 45378; principal; 2022-04-14 10:25)
DX: R19.5 Other fecal abnormalities (principal); F17.200 Nicotine dependence, unspecified, uncomplicated; I10 Essential (primary) hypertension; E78.00 Pure hypercholesterolemia, unspecified; K21.9 Gastro-esophageal reflux disease without esophagitis; Z79.899 Other long term (current) drug therapy
CPT/HCPCS: 45378; J7120

== ENCOUNTER → 2022-04-20 | Outpatient (CLI) | payer OTHER, SELFPAY ==
--- NOTE | 2022-04-20 09:44 | BI_ITS ---
MAMMOGRAPHY - BILATERAL SCREENING REASON FOR EXAM: Female, 51 years old. Routine annual screening examination. PERTINENT HISTORY: Grandmother with breast cancer. TECHNIQUE: Digital bilateral breast emy (3D mammographic acquisition) in the CC and MLO projections. 2-D mediolateral oblique (MLO) and craniocaudad (CC) views of both breasts were obtained. CAD: Full Field Digital Mammography with Computer Added Detection was performed. COMPARISON: Comparison is made with prior study dated 07/03/2013. FINDINGS: Breast Composition: There are scattered areas of fibroglandular density. There are no dominant masses or suspicious calcifications. Stable small benign-appearing bilateral axillary lymph nodes. No other significant abnormalities are identified. There has been no significant change since the prior study. BI/SCRN MAMM (CAD)W/EMY BILAT IMPRESSION: Stable bilateral screening mammogram. Yearly follow-up mammogram recommended. (A) ASSESSMENT CATEGORY: BIRADS Category 2: Benign. A letter regarding these results will be sent to the patient by the facility within 30 days. Approximately 10% of breast cancers are not detected by mammography. A normal mammogram should not delay biopsy of a clinically suspicious abnormality. [id number] Electronically Signed: Kirk Porter MD at 11:06 [facility] ,
== END | disposition home or self-care (01) ==
LOC: OPBI 09:43
PROVIDERS: PCP Family Medicine; Visit Provider Obstetrics & Gynecology
DX: Z12.31 Encounter for screening mammogram for malignant neoplasm of breast (principal); Z80.3 Family history of malignant neoplasm of breast
CPT/HCPCS: 77063; 77067

== ENCOUNTER → 2023-03-22 | Outpatient (CLI) | payer OTHER, MEDICARE, SELFPAY ==
[2023-03-27 08:10] LABS: HPV APTIMA, High Risk Negative (Negative)
== END | disposition home or self-care (01) ==
LOC: LABSPEC 12:21
PROVIDERS: Referring Provider Obstetrics & Gynecology; Visit Provider Obstetrics & Gynecology
DX: Z12.4 Encounter for screening for malignant neoplasm of cervix (principal)
CPT/HCPCS: 87624; 88175; G0145

== ENCOUNTER → 2023-05-31 | Outpatient (CLI) | payer OTHER, MEDICARE, SELFPAY ==
--- NOTE | 2023-05-31 07:24 | BI_ITS ---
MAMMOGRAPHY - BILATERAL SCREENING REASON FOR EXAM: Female, 52 years old. Routine annual screening examination. PERTINENT HISTORY: Grandmother with breast cancer. TECHNIQUE: Digital bilateral breast emy (3D mammographic acquisition) in the CC and MLO projections. 2-D mediolateral oblique (MLO) and craniocaudad (CC) views of both breasts were obtained. CAD: Full Field Digital Mammography with Computer Added Detection was performed. COMPARISON: Comparison is made with prior study dated April 20, 2022 and July 03, 2013. FINDINGS: Breast Composition: There are scattered areas of fibroglandular density. There are no dominant masses or suspicious calcifications. Stable small benign appearing bilateral axillary lymph nodes. No other significant abnormalities are identified. There has been no significant change since the prior study. BI/SCRN MAMM (CAD)W/EMY BILAT IMPRESSION: Stable bilateral screening mammogram. Yearly follow-up mammogram recommended. (A) ASSESSMENT CATEGORY: BIRADS Category 2: Benign. A letter regarding these results will be sent to the patient by the facility within 30 days. Approximately 10% of breast cancers are not detected by mammography. A normal mammogram should not delay biopsy of a clinically suspicious abnormality. [id number] Electronically Signed: Kirk Porter MD at 14:14 EST ,
--- OUTSIDE RECORDS SUMMARY | 2023-05-31 07:30 | XMS RPT_ITS | CCD ---
Author Name Unknown Address [address] [place] [address] Organization [facility] Care Team Providers Care Molding Utility Worker Name Role Phone Ida Tello DOleti Peña Primary Care Provider [phone] Allergies Allergy Classification Reported Allergen(s) Allergy Type Date of Onset Reaction(s) Facility (2 sources) [facility] Allergy to substance 3 Other: See Comments [facility] Work Phone: Medications Current Medications Medication Drug Class(es) Dates Sig (Normalized) Sig (Original) ciprofloxacin 3 mg/ml ophthalmic solution (1 source) Quinolone Antimicrobial Start: 08-13-2021 End: 08-20-2021 take 1-2 drop(s) into the eye(s) every two hours, then take 1-2 drop(s) into the eye(s) every four hours ciprofloxacin HCl (CILOXAN) 0.3 % ophthalmic solution Indications: Bacterial conjunctivitis of left eye Use 1-2 drops inside left lower eyelid(s) every 2 hours while awake for 2 days, then 1-2 drops every 4 hours for next 5 days. 5 mL 0 08/13/2021 08/20/2021 Active Completed/Discontinued Medications Medication Drug Class(es) Dates Sig (Normalized) Sig (Original) amitriptyline hydrochloride 50 mg oral tablet (2 sources) Tricyclic Antidepressant take 1 tablet by mouth once daily at bedtime amitriptyline 50 mg tablet Take 50 mg by mouth daily at bedtime. 0 Active Problems Active Problems Problem Classification Problem Date Documented Date Episodic/Chronic Anxiety disorders (2 sources) Anxiety; Translations: [Anxiety disorder, unspecified] Onset: 09-27-2014 09-27-2014 Chronic Disorders of lipid metabolism (2 sources) Hyperlipidemia; Translations: [Hyperlipidemia, unspecified] Onset: 09-27-2014 09-27-2014 Chronic Essential hypertension (2 sources) Hypertensive disorder; Translations: [Essential (primary) hypertension] Onset: 09-27-2014 09-27-2014 Chronic Inflammation; infection of eye (except that caused by tuberculosis or sexually transmitteddisease) (2 sources) Acute conjunctivitis of left eye; Translations: [Unspecified acute conjunctivitis, left eye] Episodic Past or Other Problems Problem Classification Problem Date Documented Da te Episodic/Chronic Other skin disorders (2 sources) Loss of hair; Translations: [Nonscarring hair loss, unspecified] Onset: 03-17-2013 03-17-2013 Episodic Other skin disorders (2 sources) Hirsutism; Translations: [Hirsutism] Onset: 03-17-2013 03-17-2013 Episodic Residual codes; unclassified (2 sources) Tobacco user; Translations: [Tobacco use] Onset: 09-27-2014 09-27-2014 Episodic Spondylosis; intervertebral disc disorders; other back problems (2 sources) Low back pain; Translations: [LBP (low back pain)] Onset: 09-27-2014 09-27-2014 Episodic Results Test Name Value Interpretation Reference Range Facil ity Vital Signs Date Time Vital Sign Value Performing Clinician Faci lity 08-13-2021 12:17-0400 Body temperature 98.8 [degF] eSble Lemus APRN.[facility] Work Phone: [facility] 08-13-2021 12:17-0400 Body weight 68.95 kg Seble Lemus APRN.[facility] Work Phone: [facility] 08-13-2021 12:17-0400 Diastolic blood pressure 78 mm[Hg] Seble Lemus APRN.[facility] Work Phone: [facility] 08-13-2021 12:17-0400 Heart rate 102 /min Seble Lemus APRN.[facility] Work Phone: [facility] 08-13-2021 12:17-0400 Respiratory rate 18 /min Seble Lemus APRN.[facility] Work Phone: [facility] 08-13-2021 12:17-0400 SaO2% (BldA) [Mass fraction] 98 % Seble Lemus APRN.[facility] Work Phone: [facility] 08-13-2021 12:17-0400 Systolic blood pressure 110 mm[Hg] Seble Lemus APRN.FORESTRY SUPERVISOR Work Phone: [facility] 08-01-2021 09:24-0400 Body temperature 97 [degF] Nathalia Silva PROSTHETIC AIDE.FORESTRY SUPERVISOR Work Phone: [facility] 08-01-2021 09:24-0400 Body weight 69.22 kg Nathalia Silva PROSTHETIC AIDE.FORESTRY SUPERVISOR Work Phone: [facility] 08-01-2021 09:24-0400 Diastolic blood pressure 84 mm[Hg] Nathalia Silva APRN.FORESTRY SUPERVISOR Work Phone: [facility] 08-01-2021 09:24-0400 Heart rate 104 /min Nathalia Silva APRN.FORESTRY SUPERVISOR Work Phone: [facility] 08-01-2021 09:24-0400 Respiratory rate 18 /min Nathalia Silva APRN.FORESTRY SUPERVISOR Work Phone: [facility] 08-01-2021 09:24-0400 SaO2% (BldA) [Mass fraction] 99 % Nathalia Silva APRN.FORESTRY SUPERVISOR Work Phone: [facility] 08-01-2021 09:24-0400 Systolic blood pressure 126 mm[Hg] Nathalia Silva APRN.FORESTRY SUPERVISOR Work Phone: [facility] Encounters Encounter Date Encounter Type Care Provider Facility Start: 08-13-2021 End: 08-13-2021 Patient encounter procedure Seble Lemus APRN.FORESTRY SUPERVISOR Work Phone: [facility] Procedures Date Procedure Procedure Detail Performing Clinician Start: 12-19-2020 Mammography Nathalia Silva APRN.FORESTRY SUPERVISOR Work Phone: Plan of Treatment Date Care Activity Detail Author Start: 12-09-2022 HPV TESTING HPV TESTING [facility] Start: 12-09-2022 PAP TESTING PAP TESTING [facility] Start: 08-13-2022 BP CONTROLLED (<130/80) BP CONTROLLE D (<130/80) [facility] Start: 01-08-2022 Influenza vaccination INFLUENZA (Sea son Ended) [facility] Start: 12-19-2021 Mammography MAMMOGRAM [facility] Start: 01-29-2021 COVID-19 VACCINE (3 - Booster for Moderna series) COVID-19 VACCINE (3 - Booster for Moderna series) [facility] Start: 01-08-2021 Influenza vaccination INFLUENZA (#1) [facility] Start: 2020 SHINGRIX VACCINE (1 of 2) SHINGRIX V ACCINE (1 of 2) [facility] Start: 07-17-2019 LIPID SCREEN LIPID SCREEN [facility] Start: 10-16-2015 COLOGUARD (FIT-DNA) COLOGUARD (FIT-D NA) [facility] Start: 10-16-2015 Colonoscopy COLONOSCOPY [facility] Start: 10-16-2015 COLORECTAL CANCER SCREENING COLORECTAL CANCER SCREENING [facility] Start: 10-16-[address] COLONOGRAPHY [facility] Start: 10-16-2015 DIABETES SCREEN DIABETES SCREEN [facility] Start: 10-16-2015 FECAL OCCULT BLOOD FECAL OCCULT BLOO D [facility] Start: 10-16-2015 SIGMOIDOSCOPY SIGMOIDOSCOPY [facility] Start: 1989 Urine microalbumin profile DTAP,TDAP ,TD (1 - Tdap) [facility] Start: 1988 ANNUAL PCP TEAM TELESALES SUPERVISOR KAL DISEASE VISIT ANNUAL PCP TEAM CHRONIC DISEASE VISIT [facility] Start: 1988 BP CONTROLLED (<130/80) BP CONTROLLE D (<130/80) [facility] Start: 1988 HEPATITIS C SCREENING HEPATITIS C SC REENING [facility] Start: 1988 HIV SCREENING HIV SCREENING [facility] Start: 1982 Adult depression scr eening assessment DEPRESSION SCREENING [facility] Payers Date Payer Category Payer Private Health Insurance [employer] A ETNA CHOICE POS II [id number] 2019-Present [phone] [address] [place] [address] POS [id number] Social History Date Type Detail Facility Start: 03-14-2019 Tobacco smoking stat us NHIS Ex-smoker [facility] Work Phone: End: 07-08-2018 History of tobacco use Current smoker [facility] Work Phone: End: 07-08-2018 History of tobacco use Cigarette Smoker [facility] Work Phone: Start: 03-14-2019 Tobacco use and exposure Smokeless tobacco non-user [facility] Work Phone: Start: 08-01-2021 End: 08-13-2021 Alcohol intake Current non-drinker of alcohol (finding) [facility] Start: 1970 Sex Assigned At Female C [facility] Start: 07-22-2021 End: 08-13-2021 Exposure to SARS-CoV-2 (event) Not sure [facility] Work Phone: Clinical Notes 03-17-2013 to 08-13-2021 Patient InstructionsSeble Lemus APRN.LIBAN - 08/13/2021 12:42 PM EDTPatient InstructionsNathalia Silva APRN.CNP - 08/01/2021 9:41 AM EDT Note Date & Type Note Facility 08-13-2021 Note HNO ID: [id number] Author: Seble Lemus APRN.[facility] Service: ? Author Type: Nurse Practitioner Type: Progress Notes Filed: 08/13/2021 12:49 PM Note Text: This note was created using ModaMiriter. Subjective Meagan Jordan is a 50 year old female who presents with recurrent left eye redness, irritation, and blurred vision x 2 days after a 7 day course of polytrim ocular drops for bacterial conjunctivitis was completed. Review of Systems Constitutional: Negative for chills, fatigue and fever. HENT: Negative for congestion, ear discharge, ear pain, sinus pressure, sinus pain and sore throat. Eyes: Positive for discharge, redness, itching and visual disturbance. Negative for photophobia and pain. Respiratory: Negative for cough and shortness of breath. Cardiovascular: Negative for chest pain. Gastrointestinal: Negative for diarrhea, nausea and vomiting. Genitourinary: Negative. Musculoskeletal: Negative for arthralgias and myalgias. Skin: Negative for color change. Neurological: Negative for light-headedness and headaches. Psychiatric/Behavioral: Negative for confusion. Objective BP 110/78 Pulse 102 Temp 37.1 ?C (98.8 ?F) Resp 18 Wt 68.9 kg (152 lb) LMP 09/18/2014 SpO2 98% BMI 25.29 kg/m? PAST MEDICAL HISTORY Diagnosis Date - Abnormal uterine bleeding (AUB) - Anxiety - Arthritis - Fibromyalgia - Hypertension - Irritable bowel syndrome - LBP (low back pain) - Tobacco abuse Quit smoking in 2018 PAST SURGICAL HISTORY Procedure Laterality Date - INSERTION OF IUD 09/2013 - LIG/TRNSXJ FLP TUBE ABDL/VAG APPR UNI/BI 1996 Tubal ligation - PAST SURGICAL HISTORY OF tooth extraction - S BALLOON,UTERINE ABLATION [address] [employer] ALLERGIES Pollen MEDICATIONS soy isofla/blk cohosh/mag bark (ESTROVEN ORAL) Take by mouth. ubidecarenone (COQ-10 ORAL) Take by mouth. calcium carbonate/vitamin D2 ([id number] ORAL) Take by mouth. famotidine (PEPCID) 20 mg tablet Take 20 mg by mouth twice daily. pravastatin (PRAVACHOL) 20 mg tablet Take 20 mg by mouth once daily. gabapentin (NEURONTIN) 600 mg tablet Take 600 mg by mouth twice daily. Taking 1 tablet in the AM and 1 1/2 tablet at bedtime COMPOUNDED PRESCRIPTION Black Cohosh 3 tablets daily lisinopril (ZESTRIL, PRINIVIL) 20 mg tablet Take 20 mg by mouth once daily. diclofenac, EC, (VOLTAREN) 75 mg EC tablet Take 75 mg by mouth twice daily. Cetirizine (ZYRTEC) 10 mg cap Take by mouth. DULoxetine (CYMBALTA) 60 mg capsule Take 60 mg by mouth once daily. LORazepam (ATIVAN) 0.5 mg tab Take by mouth three times daily as needed. amitriptyline 50 mg tablet Take 50 mg by mouth daily at bedtime. traMADol (ULTRAM) 50 mg tablet Take 50 mg by mouth every 6 hours as needed. diazepam (VALIUM) 2 mg tablet Take 2 mg by mouth every 6 hours as needed. OMEGA-3S/DHA/EPA/FISH OIL (OMEGA 3 ORAL) Take by mouth. Calcium Carbonate-Vitamin D3 (VITAMIN D-3) 180-5,000 mg-unit tab Take by mouth. ciprofloxacin HCl (CILOXAN) 0.3 % ophthalmic solution Use 1-2 drops inside left lower eyelid(s) every 2 hours while awake for 2 days, then 1-2 drops every 4 hours for next 5 days. Nizatidine (AXID) 150 mg capsule Take 150 mg by mouth twice daily. chlordiazePOXIDE-clidinium 5-2.5 mg per capsule Take 1 capsule by mouth before meals and at bedtime. FAMILY HISTORY Problem Relation Age of Onset - other (CYSTS ON OVARIES) Mother - other (Hysterectomy) Mother - No Known Problems Father - No Known Problems Brother - Breast Cancer Maternal Grandmother Hysterectomy - Stroke Maternal Grandfather - No Known Problems Paternal Grandmother - No Known Problems Paternal Grandfather - No Known Problems Son - No Known Problems Son - other (Hysterectomy) Maternal Aunt Social History Tobacco Use - Smoking status: Former Smoker Packs/day: 0.00 Years: 10.00 Pack years: 0.00 Types: Cigarettes Quit date: 07/2018 Years since quittin.1 - Smokeless tobacco: Never Used Vaping Use - Vaping Use: Former - Substances: Nicotine Substance Use Topics - Alcohol use: No - Drug use: No Physical Exam Vitals reviewed. Constitutional: General: She is not in acute distress. Appearance: Normal appearance. HENT: Head: Normocephalic and atraumatic. Right Ear: External ear normal. Left Ear: External ear normal. Nose: Nose normal. Mouth/Throat: Mouth: Mucous membranes are moist. Eyes: General: Gaze aligned appropriately. No scleral icterus. Right eye: No discharge. Left eye: No discharge. Extraocular Movements: Extraocular movements intact. Conjunctiva/sclera: Right eye: Right conjunctiva is not injected. Left eye: Left conjunctiva is injected. No exudate. Pupils: Pupils are equal, round, and reactive to light. Cardiovascular: Rate and Rhythm: Normal rate. Pulmonary: Effort: Pulmonary effort is normal. Musculoskeletal: Cervical back: Normal range of motion and neck supple. Skin: G (more content not included)... [facility] 08-13-2021 Instructions Jacinto Moreira - 08/13/2021 12:45 PM EDT CONJUNCTIVITIS ([facility]) BASIC INFORMATION DESCRIPTION: An inflammation of the eyelids' underside and white part of the eye. It is more common in children. FREQUENT SIGNS AND SYMPTOMS: The following symptoms may affect one or both eyes: -Clear, green or yellow discharge from the eye. -After sleeping, crusts on lashes that cause eyelids to stick together. -Eye pain. -Swollen eyelids. -Sensitivity to bright light. -Redness and gritty feeling in the eye. -Intense itching (allergic conjunctivitis only). PREVENTIVE MEASURES: -Wash hands frequently with soap and warm water. -Avoid exposure to eye irritants. Newborns in hospital deliveries are routinely given antibiotic eye drops. -Do not share eyeliners, and discard mascara after 4-6 months. TREATMENT: GENERAL MEASURES: -Treatment of conjunctivitis varies with the cause. -Wash hands often with antiseptic soap, and use paper towels to dry. Don't touch eyes. Gently wipe the discharge from the eye using disposable tissues. -Infections are frequently spread by contaminated fingers, towels, handkerchiefs or wash clothes that have touched the infected eye. -Use warm-water soaks or cold water to reduce discomfort. -Don't use eye makeup. -If the infection does not improve in 2 or 3 days, it may be caused by an insensitive bacteria, virus or allergy. At this point, an biology internship may need to culture the cause or the conjunctivitis. -Do not wear contact lenses until inflammation is cleared. ACTIVITY: Resume your normal activities as soon as symptoms improve. Contact physician if: -The infection does not improve in 48 hours, despite treatment. -Fever occurs. -Pain increase. -Vision is affected. REPORT: -The infection does not imporve in 48 hours, despite treatment. -Fever occurs -Pain increase -Vision is affected. documented in this encounter [facility] 08-13-2021 History of Presen t illness Narrative This note was created using ModaMiriter. Subjective Meagan Jordan is a 50 year old female who presents with recurrent left eye redness, irritation, and blurred vision x 2 days after a 7 day course of polytrim ocular drops for bacterial conjunctivitis was completed. Review of Systems Constitutional: Negative for chills, fatigue and fever. HENT: Negative for congestion, ear discharge, ear pain, sinus pressure, sinus pain and sore throat. Eyes: Positive for discharge, redness, itching and visual disturbance. Negative for photophobia and pain. Respiratory: Negative for cough and shortness of breath. Cardiovascular: Negative for chest pain. Gastrointestinal: Negative for diarrhea, nausea and vomiting. Genitourinary: Negative. Musculoskeletal: Negative for arthralgias and myalgias. Skin: Negative for color change. Neurological: Negative for light-headedness and headaches. Psychiatric/Behavioral: Negative for confusion. Objective BP 110/78 Pulse 102 Temp 37.1 C (98.8 F) Resp 18 Wt 68.9 kg (152 lb) LMP 09/18/2014 SpO2 98% BMI 25.29 kg/m PAST MEDICAL HISTORY Diagnosis Date Abnormal uterine bleeding (AUB) Anxiety Arthritis Fibromyalgia Hypertension Irritable bowel syndrome LBP (low back pain) Tobacco abuse Quit smoking in 2018 PAST SURGICAL HISTORY Procedure Laterality Date INSERTION OF IUD 09/2013 LIG/TRNSXJ FLP TUBE ABDL/VAG APPR UNI/BI 1996 Tubal ligation PAST SURGICAL HISTORY OF tooth extraction S BALLOON,UTERINE ABLATION [address] [employer] ALLERGIES Pollen MEDICATIONS soy isofla/blk cohosh/mag bark (ESTROVEN ORAL) Take by mouth. ubidecarenone (COQ-10 ORAL) Take by mouth. calcium carbonate/vitamin D2 ([id number]-588-[id number] ORAL) Take by mouth. famotidine (PEPCID) 20 mg tablet Take 20 mg by mouth twice daily. pravastatin (PRAVACHOL) 20 mg tablet Take 20 mg by mouth once daily. gabapentin (NEURONTIN) 600 mg tablet Take 600 mg by mouth twice daily. Taking 1 tablet in the AM and 1 1/2 tablet at bedtime COMPOUNDED PRESCRIPTION Black Cohosh 3 tablets daily lisinopril (ZESTRIL, PRINIVIL) 20 mg tablet Take 20 mg by mouth once daily. diclofenac, EC, (VOLTAREN) 75 mg EC tablet Take 75 mg by mouth twice daily. Cetirizine (ZYRTEC) 10 mg cap Take by mouth. DULoxetine (CYMBALTA) 60 mg capsule Take 60 mg by mouth once daily. LORazepam (ATIVAN) 0.5 mg tab Take by mouth three times daily as needed. amitriptyline 50 mg tablet Take 50 mg by mouth daily at bedtime. traMADol (ULTRAM) 50 mg tablet Take 50 mg by mouth every 6 hours as needed. diazepam (VALIUM) 2 mg tablet Take 2 mg by mouth every 6 hours as needed. OMEGA-3S/DHA/EPA/FISH OIL (OMEGA 3 ORAL) Take by mouth. Calcium Carbonate-Vitamin D3 (VITAMIN D-3) 180-5,000 mg-unit tab Take by mouth. ciprofloxacin HCl (CILOXAN) 0.3 % ophthalmic solution Use 1-2 drops inside left lower eyelid(s) every 2 hours while awake for 2 days, then 1-2 drops every 4 hours for next 5 days. Nizatidine (AXID) 150 mg capsule Take 150 mg by mouth twice daily. chlordiazePOXIDE-clidinium 5-2.5 mg per capsule Take 1 capsule by mouth before meals and at bedtime. FAMILY HISTORY Problem Relation Age of Onset other (CYSTS ON OVARIES) Mother other (Hysterectomy) Mother No Known Problems Father No Known Problems Brother Breast Cancer Maternal Grandmother Hysterectomy Stroke Maternal Grandfather No Known Problems Paternal Grandmother No Known Problems Paternal Grandfather No Known Problems Son No Known Problems Son other (Hysterectomy) Maternal Aunt Social History Tobacco Use Smoking status: Former Smoker Packs/day: 0.00 Years: 10.00 Pack years: 0.00 Types: Cigarettes Quit date: 07/2018 Years since quittin.1 Smokeless tobacco: Never Used Vaping Use Vaping Use: Former Substances: Nicotine Substance Use Topics Alcohol use: No Drug use: No Physical Exam Vitals reviewed. Constitutional: General: She is not in acute distress. Appearance: Normal appearance. HENT: Head: Normocephalic and atraumatic. Right Ear: External ear normal. Left Ear: External ear normal. Nose: Nose normal. Mouth/Throat: Mouth: Mucous membranes are moist. Eyes: General: Gaze aligned appropriately. No scleral icterus. Right eye: No discharge. Left eye: No discharge. Extraocular Movements: Extraocular movements intact. Conjunctiva/sclera: Right eye: Right conjunctiva is not injected. Left eye: Left conjunctiva is injected. No exudate. Pupils: Pupils are equal, round, and reactive to light. Cardiovascular: Rate and Rhythm: Normal rate. Pulmonary: Effort: Pulmonary effort is normal. Musculoskeletal: Cervical back: Normal range of motion and neck supple. Skin: General: Skin is warm and dry. Capillary Refill: Capillary refill takes less than 2 seconds. Coloration: Skin is not jaundiced or pale. Neurological: General: No focal deficit present. Mental Status: She is alert and oriented to person, place, and time. Mental status is at baseline. Psychiatric: Mood and Affect: Mood normal. Behavior: Behavior normal. Assessment and Plan ASSESSMENT/PLAN: 1. Bacterial conjunctivitis of left eye - ICD9: 372.39, 041.9, ICD10: H10.9 Bacterial - see medication orders - course and contagiousness issues discussed, including hand washing. - Instructed to call if high fever, development of periorbital redness or swelling, eye pain, visual changes, concerns or if symptoms persist. - Follow up with optho if symptoms persist - CIPROFLOXACIN 0.3 % EYE DROPS Jacinto Moreira RN TEACHING PROVIDER (Physician/PA/PROSTHETIC AIDE) NOTE OF PERSONAL INVOLVEMENT IN CARE: I have personally seen and examined the patient and performed the medical decision-making components. I have reviewed the Advanced Practice Registered Nurse (PROSTHETIC AIDE) Student's documentation and verified the findings in the note as written. Any additions or changes are noted in bold/italics. Signature: Seble Lemus Date: 08/13/2021 Time: 12:48 PM documented in this encounter [facility] 08-01-2021 Note HNO ID: [id number] Author: Nathalia Silva APRN.FORESTRY SUPERVISOR Service: ? Author Type: Nurse Practitioner Type: Progress Notes Filed: 08/01/2021 10:48 AM Note Text: Subjective The history is provided by the patient. No quantometer operator was used. HPI Meagan Jordan is a 50 year old female who presents today for CC of left eye drainage and redness. This started one day ago. She denies any pain in eye or loss or change in vision. She has used soothing drops without relief. BP 126/84 Pulse 104 Temp 36.1 ?C (97 ?F) Resp 18 Wt 69.2 kg (152 lb 9.6 oz) LMP 09/18/2014 SpO2 99% BMI 25.39 kg/m? Social History Tobacco Use - Smoking status: Former Smoker Packs/day: 0.00 Years: 10.00 Pack years: 0.00 Types: Cigarettes Quit date: 07/2018 Years since quittin.0 - Smokeless tobacco: Never Used Vaping Use - Vaping Use: Former - Substances: Nicotine Substance Use Topics - Alcohol use: No - Drug use: No PAST MEDICAL HISTORY Diagnosis Date - Abnormal uterine bleeding (AUB) - Anxiety - Arthritis - Fibromyalgia - Hypertension - Irritable bowel syndrome - LBP (low back pain) - Tobacco abuse Quit smoking in 2019 I have confirmed and edited as necessary, the [facility] Review of Systems Constitutional: Negative for chills and fever. HENT: Negative for congestion, ear pain, sinus pain and sore throat. Eyes: Positive for discharge and redness. Respiratory: Negative for cough, sputum production, shortness of breath and wheezing. Cardiovascular: Negative for chest pain. Musculoskeletal: Negative for myalgias. Neurological: Negative for headaches. Objective Physical Exam Vitals and nursing note reviewed. HENT: Head: Normocephalic and atraumatic. Right Ear: Tympanic membrane, ear canal and external ear normal. Left Ear: Tympanic membrane, ear canal and external ear normal. Mouth/Throat: Pharynx: Uvula midline. Eyes: General: Lids are normal. Lids are everted, no foreign bodies appreciated. Vision grossly intact. Right eye: No foreign body or discharge. Left eye: Discharge present.No foreign body. Extraocular Movements: Extraocular movements intact. Conjunctiva/sclera: Right eye: Right conjunctiva is not injected. Left eye: Left conjunctiva is injected. Cardiovascular: Rate and Rhythm: Normal rate and regular rhythm. Heart sounds: Normal heart sounds. Pulmonary: Effort: Pulmonary effort is normal. Breath sounds: Normal breath sounds. Lymphadenopathy: Head: Right side of head: No submental, submandibular or tonsillar adenopathy. Left side of head: No submental, submandibular or tonsillar adenopathy. Cervical: No cervical adenopathy. Skin: General: Skin is warm and dry. Neurological: Mental Status: She is alert. Psychiatric: Mood and Affect: Affect normal. ASSESSMENT/PLAN: 1. Acute conjunctivitis of left eye, unspecified acute conjunctivitis type - ICD9: 372.00, ICD10: H10.32 Appears to be bacterial - see medication orders - course and contagiousness issues discussed, including hand washing. - Instructed to call if high fever, development of periorbital redness or swelling, eye pain, visual changes, concerns or if symptoms persist. Diagnosis and treatment plan were discussed and questions were answered to the patient's satisfaction. Pt acknowledged understanding of concepts and follow up plan. Specific signs and symptoms that would indicate the need for higher level of care were discussed in detail warranting prompt ER evaluation. Nathalia Silva APRN.CNP Medical Decision Making: Problems: Moderate: New problem with uncertain prognosis Risk: Moderate: Moderate risk from testing/treatment and Drug management Medical Decision Making Level: 4 - Moderate [facility] 08-01-2021 Instructions Nathalia Silva APRN.CNP - 08/01/2021 9:48 AM EDT Cool compresses for eye inflammation/irritation frequently throughout the day. No eye makeup for next 7 days, throw away any makeup that you used prior to this infection. Go to ER for any sudden loss of vision or severe vision changes. Follow up with eye doctor if no improvement in 1 week. documented in this encounter [facility] 08-01-2021 History of Presen t illness Narrative Subjective The history is provided by the patient. No quantometer operator was used. HPI Meagan Jordan is a 50 year old female who presents today for CC of left eye drainage and redness. This started one day ago. She denies any pain in eye or loss or change in vision. She has used soothing drops without relief. BP 126/84 Pulse 104 Temp 36.1 C (97 F) Resp 18 Wt 69.2 kg (152 lb 9.6 oz) LMP 09/18/2014 SpO2 99% BMI 25.39 kg/m Social History Tobacco Use Smoking status: Former Smoker Packs/day: 0.00 Years: 10.00 Pack years: 0.00 Types: Cigarettes Quit date: 07/2018 Years since quittin.0 Smokeless tobacco: Never Used Vaping Use Vaping Use: Former Substances: Nicotine Substance Use Topics Alcohol use: No Drug use: No PAST MEDICAL HISTORY Diagnosis Date Abnormal uterine bleeding (AUB) Anxiety Arthritis Fibromyalgia Hypertension Irritable bowel syndrome LBP (low back pain) Tobacco abuse Quit smoking in 2019 I have confirmed and edited as necessary, the [facility] Review of Systems Constitutional: Negative for chills and fever. HENT: Negative for congestion, ear pain, sinus pain and sore throat. Eyes: Positive for discharge and redness. Respiratory: Negative for cough, sputum production, shortness of breath and wheezing. Cardiovascular: Negative for chest pain. Musculoskeletal: Negative for myalgias. Neurological: Negative for headaches. Objective Physical Exam Vitals and nursing note reviewed. HENT: Head: Normocephalic and atraumatic. Right Ear: Tympanic membrane, ear canal and external ear normal. Left Ear: Tympanic membrane, ear canal and external ear normal. Mouth/Throat: Pharynx: Uvula midline. Eyes: General: Lids are normal. Lids are everted, no foreign bodies appreciated. Vision grossly intact. Right eye: No foreign body or discharge. Left eye: Discharge present.No foreign body. Extraocular Movements: Extraocular movements intact. Conjunctiva/sclera: Right eye: Right conjunctiva is not injected. Left eye: Left conjunctiva is injected. Cardiovascular: Rate and Rhythm: Normal rate and regular rhythm. Heart sounds: Normal heart sounds. Pulmonary: Effort: Pulmonary effort is normal. Breath sounds: Normal breath sounds. Lymphadenopathy: Head: Right side of head: No submental, submandibular or tonsillar adenopathy. Left side of head: No submental, submandibular or tonsillar adenopathy. Cervical: No cervical adenopathy. Skin: General: Skin is warm and dry. Neurological: Mental Status: She is alert. Psychiatric: Mood and Affect: Affect normal. ASSESSMENT/PLAN: 1. Acute conjunctivitis of left eye, unspecified acute conjunctivitis type - ICD9: 372.00, ICD10: H10.32 Appears to be bacterial - see medication orders - course and contagiousness issues discussed, including hand washing. - Instructed to call if high fever, development of periorbital redness or swelling, eye pain, visual changes, concerns or if symptoms persist. Diagnosis and treatment plan were discussed and questions were answered to the patient's satisfaction. Pt acknowledged understanding of concepts and follow up plan. Specific signs and symptoms that would indicate the need for higher level of care were discussed in detail warranting prompt ER evaluation. Nathalia Silva APRN.CNP Medical Decision Making: Problems: Moderate: New problem with uncertain prognosis Risk: Moderate: Moderate risk from testing/treatment and Drug management Medical Decision Making Level: 4 - Moderate documented in this encounter [facility] 12-19-2020 Note HNO ID: [id number] Author: Radha Monahan APRN.CNP Service: ? Author Type: Nurse Practitioner Type: Progress Notes Filed: 12/19/2020 1:56 PM Note Text: Janis is a 50 year old who presents for an annual gynecologic exam without complaints. Has had low libido over past year. Has fibromyalgia and takes many medications including Cymbalta and gabapentin. Taking Estroven OTC Menses: No, ablation in 2014 [employer]. Contraception: tubal ligation HPV vaccine: No Last Pap: 12/15/2017 normal HPV: 12/13/2017 negative History of abnormal pap: No Last mammogram: today, pending Sexually active: Yes History of STDS: None Pain with intercourse: No Postcoital bleeding: No Hot flashes: Yes - 1-2 times a week Night sweats: Yes, 1-2 times a week Vaginal dryness: Yes- with intercourse, lubricant somewhat helpful Documentation from previous visit of was copied and pasted, documentation has been reviewed and edited as necessary for today's visit. OB History T2 L2 SAB0 TAB0 Ectopic0 Multiple0 Live Births0 PAST MEDICAL HISTORY Diagnosis Date - Abnormal uterine bleeding (AUB) - Anxiety - Arthritis - Fibromyalgia - Hypertension - Irritable bowel syndrome - LBP (low back pain) - Tobacco abuse Quit smoking in 2019 PAST SURGICAL HISTORY Procedure Laterality Date - INSERTION OF IUD 09/2013 - LIGATE FALLOPIAN TUBE 1996 Tubal ligation - PAST SURGICAL HISTORY OF tooth extraction - S BALLOON,UTERINE ABLATION [id number] [employer] FAMILY HISTORY Problem Relation Age of Onset - other (CYSTS ON OVARIES) Mother - other (Hysterectomy) Mother - No Known Problems Father - No Known Problems Brother - Breast Cancer Maternal Grandmother Hysterectomy - Stroke Maternal Grandfather - No Known Problems Paternal Grandmother - No Known Problems Paternal Grandfather - No Known Problems Son - No Known Problems Son - other (Hysterectomy) Maternal Aunt SOCIAL HISTORY Social History Tobacco Use - Smoking status: Former Smoker Packs/day: 0.50 Years: 10.00 Pack years: 5.00 Types: Cigarettes Quit date: 07/2018 Years since quittin.4 - Smokeless tobacco: Never Used Vaping Use - Vaping Use: current everyday user - Substances: Nicotine Substance Use Topics - Alcohol use: No - Drug use: No REVIEW OF SYSTEMS Abdomen: No abdominal pain, nausea, vomiting, diarrhea, or constipation. No bloating, early satiety, indigestion, or increased flatulence. Bladder: No dysuria, gross hematuria, urinary frequency, urinary urgency, or incontinence. Breast: No breast lumps, nipple d/c, overlying skin changes, redness or skin retraction. Allergies and current medication updated:Yes EXAM: BP 100/60 Ht 5' 5 (1.65m) Wt 147 lb 12.8 oz (67.0kg) LMP 09/18/2014 BMI 24.60 kg/(m2). GENERAL: pleasant, female in no apparent distress HEENT: Normocephalic, atraumatic, mucus membranes moist and no lesions NECK: Supple, full range of motion, no adenopathy and thyroid normal DERMATOLOGY: Normal, without lesions, non-icteric and non-hirsute BREAST: soft, non-tender, symmetric, no dominant mass, normal nipple-areolar complex, no lymphadenopathy and no nipple discharge CHEST: Normal inspiratory effort ABDOMEN: soft, non-tender and no masses PELVIC: external genitalia normal, normal Bartholin's glands, urethra, [place]'s glands, no vulvar lesions, no cervical lesions, good vaginal support, physiologic discharge present, normal appearing perineal body and perianal region BIMANUAL: uterus normal size, shape and consistency, no adnexal masses and non-tender RECTOVAGINAL: deferred. NEURO: alert and oriented x3,exam grossly non-focal EXTREMITIES: normal ASSESSMENT/PLAN: 1) Health maintenance: Pap/HPV up to date. Mammogram ordered. Low libido -discussed with patient that libido is multifactorial and discussed contributing factors. Given written information and resources. Discussed Addyi. 2) Contraception: tubal sterilization. Contraceptive options reviewed and information provided. 3) STD screening: Declined STD check. 4) Colonoscopy: Will follow up with PCP 5) Follow up one year or sooner as needed Radha Monahan APRN.CNP [facility] 10-03-2020 Note HNO ID: [id number] Author: Papa Garcia APRN.LIBAN Service: ? Author Type: Nurse Practitioner Type: Progress Notes Filed: 10/03/2020 2:14 PM Note Text: Visit Date: October 03, 2020 Patient Name: Ms.Lora Leti Jordan Date of : 1970 MRN/E #: [id number] Chief Complaint Patient presents with: burning with urination: x 1 week History of present illness Meagan Jordan is a 49 year old female. Presents with complaints of urinary frequency, urgency, and burning that started 1 week ago. Denies having any hematuria, flank pain, abdominal pain, or pelvic pain. She has tried OTC UTI medications for her symptoms with no relief. PAIN EVALUATION No data found in the last 1 encounters. ALLERGIES Allergen Reactions - Pollen Other: See Comments Sinus/drainage, ect... PAST MEDICAL HISTORY Diagnosis Date - Abnormal uterine bleeding (AUB) - Anxiety - Arthritis - Fibromyalgia - Hypertension - Irritable bowel syndrome - LBP (low back pain) - Tobacco abuse Quit smoking in 2018 PAST SURGICAL HISTORY Procedure Laterality Date - INSERTION OF IUD 09/2013 - LIGATE FALLOPIAN TUBE 1996 Tubal ligation - PAST SURGICAL HISTORY OF tooth extraction - S BALLOON,UTERINE ABLATION [address] [employer] Social History Tobacco Use - Smoking status: Former Smoker Packs/day: 0.50 Years: 10.00 Pack years: 5.00 Types: Cigarettes Quit date: 07/2018 Years since quittin.2 - Smokeless tobacco: Never Used Substance Use Topics - Alcohol use: No - Drug use: No FAMILY HISTORY Problem Relation Age of Onset - other (CYSTS ON OVARIES) Mother - other (Hysterectomy) Mother - No Known Problems Father - No Known Problems Brother - Breast Cancer Maternal Grandmother Hysterectomy - Stroke Maternal Grandfather - No Known Problems Paternal Grandmother - No Known Problems Paternal Grandfather - No Known Problems Son - No Known Problems Son - other (Hysterectomy) Maternal Aunt Review of Systems Constitutional: Negative for chills, fever and malaise/fatigue. HENT: Negative for congestion and sore throat. Respiratory: Negative for cough, shortness of breath and wheezing. Cardiovascular: Negative for chest pain and palpitations. Gastrointestinal: Negative for abdominal pain, diarrhea, nausea and vomiting. Genitourinary: Positive for dysuria, frequency and urgency. Negative for flank pain and hematuria. Musculoskeletal: Negative for myalgias. Skin: Negative for itching and rash. Neurological: Negative for dizziness, tingling and headaches. Physical Exam Vitals and nursing note reviewed. Constitutional: Appearance: Normal appearance. Eyes: Extraocular Movements: Extraocular movements intact. Pupils: Pupils are equal, round, and reactive to light. Cardiovascular: Rate and Rhythm: Normal rate and regular rhythm. Pulses: Normal pulses. Heart sounds: Normal heart sounds. Pulmonary: Effort: Pulmonary effort is normal. Breath sounds: Normal breath sounds. Abdominal: General: Abdomen is flat. Bowel sounds are normal. There is no distension. Palpations: Abdomen is soft. Tenderness: There is no abdominal tenderness. There is no guarding. Skin: General: Skin is warm and dry. Neurological: Mental Status: She is alert and oriented to person, place, and time. BP 122/78 Pulse 82 Temp (Src) 98.9 (Tympanic) Resp 18 Wt 147 lb 12.8 oz (67.0kg) SpO2 98% LMP 09/18/2014 Assessment/Plan (R30.0) Burning with urination (primary encounter diagnosis) -UA DIP -URINE (POC) -URINE CULTURE (N30.01) Acute cystitis with hematuria -nitrofurantoin monohydrate and macrocrystal (MACROBID) 100 mg capsule - UA positive for efra esterase, hematuria, proteinuria and nitrates - Send urine for culture - Begin treatment with Macrobid 100 mg BID for 5 days - Patient education for prevention given - UA DIP B/O - URINE CULTURE Papa Garcia APRN.CNP Discussed above plan with patient. Pt agreeable with above plan. [facility] documented as of this encounter (statuses as of 08/01/2021) [facility] History of Past illness Narrative* Problem Noted Date Resolved Date Heavy menstrual bleeding 03/17/2013 018 documented as of this encounter (statuses as of 08/13/2021) [facility] Diagnosis Acute conjunctivitis of left eye, unspecified acute conjunctivitis type- [facility] Bacterial conjunctivitis of left eye- Primary Other conjunctivitis documented in this encounter [facility] Summary Purpose Family History No Family History Records Found Advance Directives No Advanced Directives Records Found Additional Source Comments Source Comments (unrecognize d section and content) In the event this informatio n is protected by the Federal Confidentiality of Alcohol and Drug Abuse Patient Records regulations: The Federal rules restrict any use of the information to criminally investigate or prosecute any alcohol or drug abuse patient.[facility] the event this information is protected by the Federal Confidentiality of Alcohol and Drug Abuse Patient Records regulations: The Federal rules restrict any use of the information to criminally investigate or prosecute any alcohol or drug abuse patient.[facility] Reason for Visit (unrecogniz ed section and content) Reason Comments Ear Problem left eye red and yossi inage x couple days, was on medication previously Care Teams (unrecognized sec tion and content) 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 This clinical summary was aggregated from multiple sources. Caution should be exercised in using it in the provision of clinical care. This summary normalizes information from multiple sources, and as a consequence, information in this document may materially change the coding, format and clinical context of patient data. In addition, data may be omitted in some cases. CLINICAL DECISIONS SHOULD BE BASED ON THE PRIMARY CLINICAL RECORDS. [facility] [employer] [facility]. provides no warranty or guarantee of the accuracy or completeness of information in this document.
== END | disposition home or self-care (01) ==
LOC: OPBI 07:24
PROVIDERS: PCP Family Medicine; Referring Provider Obstetrics & Gynecology; Visit Provider Obstetrics & Gynecology
DX: Z12.31 Encounter for screening mammogram for malignant neoplasm of breast (principal)
CPT/HCPCS: 77063; 77067

== ENCOUNTER → 2023-07-01 | Outpatient (CLI) | payer OTHER, MEDICARE, SELFPAY ==
[2023-07-01 12:31] LABS: Absolute Lymphocyte Count 1.48 X10^3/uL (0.83-4.51); Absolute Neutrophil Count 2.9 X10^3/uL (2.0-7.7); Basophil# 0.05 X10^3/uL; Eosinophil# 0.22 X10^3/uL; Eosinophils% 4.3 % (0-5); Hematocrit 39.9 % (37-47); Hemoglobin 12.9 g/dL (12.0-15.0); Lymphocyte # 1.48 X10^3/ul (0.83-4.51); Lymphocyte % 28.7 % (19-41); Mean Corp Hgb Conc 32.3 g/dL (32-36); Mean Corpuscular Hgb 28.8 pg (27.0-32.0); Mean Corpuscular Volume 89.1 fL (81-99); Monocyte# 0.48 X10^3/uL; Monocyte% 9.3 % (0-10); NRBC Flagged by Analyzer 0 % (0-5); Neutrophil # 2.92 X10^3/uL (2.7-7.7); Neutrophil % 56.5 % (47-70); Platelet Count 296 K/mm3 (150-450); RBC Distribution Width SD 42.4 fl (35.1-43.9); Red Blood Count 4.48 M/mm3 (4.2-5.4); White Blood Count 5.2 K/mm3 (4.4-11.0)
[2023-07-01 13:06] LABS: Vitamin D,25 Hydroxy 54.6 ng/mL
[2023-07-01 13:30] LABS: ALB/GLOB Ratio 1.2 RATIO (0.9-2.4); AST(SGOT) 27 U/L (15-37); Alanine Aminotransfer ALT/SGPT 33 U/L (13-56); Albumin, Serum 3.9 g/dL (3.2-5.0); Alkaline Phosphatase 76 U/L (45-117); Anion Gap 3 (5-15); BUN 9 mg/dL (7-18); BUN/Creat Ratio 11.3 RATIO (10-20); Calcium,Total 9.2 mg/dL (8.5-10.1); Chloride 107 mmol/L (98-107); Cholesterol 302 mg/dL (200); Creatinine, Serum 0.79 mg/dL (0.55-1.02); EST Glomerular Filtration Rate 81 mL/min (>60); Est Glom Filt Rate - Afr Amer 98 mL/min (>60); Free T3 1.8 pg/mL (2.18-3.98); Globulin 3.2 g/dL (2.2-4.2); Glucose 94 mg/dL (74-106); High Density Lipoprotein 79 mg/dL; Protein, Total 7.1 g/dL (6.4-8.2); Sodium Level 140 mmol/L (136-145); T4 Free Direct 0.83 ng/dL (0.76-1.46); Thyroid Stim Hormone (TSH) 1.86 uIU/mL (0.358-3.74); Triglycerides 155 mg/dL; Very Low Density Lipoprotein 31 mg/dL (5-40)
== END | disposition home or self-care (01) ==
LOC: BFHLAB 10:07
PROVIDERS: PCP Family Medicine; Visit Provider Family Medicine
DX: Z00.00 Encounter for general adult medical examination without abnormal findings (principal); E78.5 Hyperlipidemia, unspecified; E03.9 Hypothyroidism, unspecified; E55.9 Vitamin D deficiency, unspecified; R79.89 Other specified abnormal findings of blood chemistry
CPT/HCPCS: 36415; 80053; 80061; 82306; 84439; 84443; 84481; 85025

== ENCOUNTER → 2024-04-05 | Outpatient (CLI) | payer MEDICARE, OTHER, SELFPAY ==
[2024-04-05 08:45] LABS: Cholesterol 277 mg/dL (200); High Density Lipoprotein 89 mg/dL; Triglycerides 138 mg/dL; Very Low Density Lipoprotein 28 mg/dL (5-40)
== END | disposition home or self-care (01) ==
PROVIDERS: PCP Family Medicine; Referring Provider Obstetrics & Gynecology; Visit Provider Obstetrics & Gynecology
DX: Z13.220 Encounter for screening for lipoid disorders (principal)
CPT/HCPCS: 36415; 80061

== ENCOUNTER → 2024-06-02 | Outpatient (CLI) | payer MEDICARE, OTHER, SELFPAY ==
--- NOTE | 2024-06-02 07:59 | BI_ITS ---
MAMMOGRAPHY - BILATERAL SCREENING REASON FOR EXAM: Female, 53 years old. Routine annual screening examination. PERTINENT HISTORY: Grandmother with breast cancer. TECHNIQUE: Digital bilateral breast emy (3D mammographic acquisition) in the CC and MLO projections. 2-D mediolateral oblique (MLO) and craniocaudad (CC) views of both breasts were obtained. CAD: Full Field Digital Mammography with Computer Added Detection was performed. COMPARISON: Comparison is made with prior study dated May 31, 2023 and April 20, 2022. FINDINGS: Breast Composition: There are scattered areas of fibroglandular density. There are no dominant masses or suspicious calcifications. Stable small benign-appearing bilateral axillary lymph nodes. No other significant abnormalities are identified. There has been no significant change since the prior study. BI/SCRN MAMM (CAD)W/EMY BILAT IMPRESSION: Stable bilateral screening mammogram. Yearly follow-up mammogram recommended. (A) ASSESSMENT CATEGORY: BIRADS Category 2: Benign. A letter regarding these results will be sent to the patient by the facility within 30 days. Approximately 10% of breast cancers are not detected by mammography. A normal mammogram should not delay biopsy of a clinically suspicious abnormality. [id number] Electronically Signed: Kirk Porter MD at 9:26 EST ,
== END | disposition home or self-care (01) ==
LOC: OPBI 07:59
PROVIDERS: PCP Family Medicine; Referring Provider Obstetrics & Gynecology; Visit Provider Obstetrics & Gynecology
DX: Z12.31 Encounter for screening mammogram for malignant neoplasm of breast (principal)
CPT/HCPCS: 77063; 77067